=== PATIENT | female | born 1985 | race Two or more races ===

== ENCOUNTER 2017-11-03 16:37 | Emergency (ER) | payer SELFPAY ==
--- NOTE | 2017-11-03 17:44 | ER Document Report ---
HPI - HPI Pain Level: 2 Context: Patient is a 32-year-old female presents emergency department with a complaint of leg pain. Patient states that she was at home 9 days ago and tripped over a baby gate and she admits to pain on her right pena as well as her left knee. She states she has been able to ambulate without any difficulty. Intermittently she will have some burning discomfort behind her right pena where she still has a bruise and hematoma. She states that she has not been taking any Tylenol or Motrin. Otherwise healthy female. Last menstrual period was 2 weeks ago. - REPRODUCTIVE Reproductive: DENIES: : Past Medical History - Social History Smoking Status: Never Smoker Family History: Reviewed & Not Pertinent Past Surgical History: Reports: Hx Orthopedic Surgery - L knee - Immunizations Hx Diphtheria, Pertussis, Tetanus Vaccination: Yes Vertical Provider Document - CONSTITUTIONAL Agree With Documented VS: Yes Notes: PHYSICAL EXAM GENERAL: Alert, interacts well. EXTREMITIES: Moves all 4 extremities spontaneously. Full range of motion nontender. No palpable deformities, evidence of edema, radial and dorsalis pedis pulses 2/4 bilaterally. No cyanosis. NEUROLOGICAL: Alert and oriented x4. Normal speech. PSYCH: Normal affect, normal mood. SKIN: Warm, dry, normal turgor. No rashes or lesions noted. 2 abrasions noted on the right pena with mild ecchymosis as well as the left knee. - INFECTION CONTROL TRAVEL OUTSIDE OF THE [place] IN LAST 30 DAYS: No - RESPIRATORY O2 Sat by Pulse Oximetry: 99 Course - Re-evaluation Re-evalutation: 11/03/17 18:20 Patient is a 32-year-old female is hemodynamically stable, no acute distress. No evidence of a septic joint, gout flare, dislocation, or fracture on exam and imaging. Vitals wnl. At this time, I do not see an indication for labs or further imaging. Will discharge with conservative measures, return precautions, and follow-up recommendations. - Vital Signs Vital signs: Temp Pulse Resp BP Pulse Ox 98.8 F 87 16 134/72 H 99 11/03/17 16:56 11/03/17 16:56 11/03/17 16:56 11/03/17 16:56 11/03/17 16:56 - Diagnostic Test Radiology reviewed: Image reviewed, Reports reviewed Discharge - Discharge Clinical Impression: Fall Qualifiers: Encounter type: initial encounter Qualified Code(s): W19.XXXA - Unspecified fall, initial encounter Condition: Good Disposition: HOME, SELF-CARE Instructions: Contusion ([facility]), Ice & Elevation ([facility]) Referrals: JUSTINA ROSEN MD [ACTIVE STAFF] - Follow up as needed
--- NOTE | 2017-11-03 18:13 | RADIOLOGY REPORT (SQ) ---
EXAM DESCRIPTION: KNEE LEFT 4 VIEW COMPLETED DATE/TIME: 11/03/2017 6:05 pm REASON FOR STUDY: fall, bruising COMPARISON: None. NUMBER OF VIEWS: Four views. TECHNIQUE: AP, lateral, and both oblique radiographic images acquired of the left knee. LIMITATIONS: None. FINDINGS: MINERALIZATION: Normal. BONES: No acute fracture or dislocation. No worrisome bone lesions. JOINT: No effusion. SOFT TISSUES: No soft tissue swelling. No radio-opaque foreign body. OTHER: No other significant finding. IMPRESSION: NEGATIVE STUDY OF THE LEFT KNEE. NO RADIOGRAPHIC EVIDENCE OF ACUTE INJURY. TECHNICAL DOCUMENTATION: JOB ID: [id number] [email or web address]- All Rights Reserved
--- NOTE | 2017-11-03 18:13 | RADIOLOGY REPORT (SQ) ---
EXAM DESCRIPTION: TIBIA FIBULA RIGHT COMPLETED DATE/TIME: 11/03/2017 6:06 pm REASON FOR STUDY: fall, bruising COMPARISON: None. NUMBER OF VIEWS: Two views. TECHNIQUE: Two radiographic images acquired of the right tibia and fibula to include the knee and an kle in at least one projection. LIMITATIONS: None. FINDINGS: MINERALIZATION: Normal. BONES: No acute fracture or dislocation. No worrisome bone lesions. SOFT TISSUES: No obvious swelling or foreign body. OTHER: No other significant finding. IMPRESSION: NEGATIVE STUDY OF THE RIGHT TIBIA AND FIBULA. NO RADIOGRAPHIC EVIDENCE OF ACUTE INJURY. TECHNICAL DOCUMENTATION: JOB ID: [id number] [employer] All Rights Reserved
[2017-11-03 18:40] VITALS: BP 127/73
== END 2017-11-03 18:30 | disposition home or self-care (01) ==
LOC: ER 16:37
DX: S80.11XA Contusion of right lower leg, initial encounter (principal); S80.02XA Contusion of left knee, initial encounter; W01.0XXA Fall on same level from slipping, tripping and stumbling without subsequent striking against object, initial encounter; Y92.009 Unspecified place in unspecified non-institutional (private) residence as the place of occurrence of the external cause
CPT/HCPCS: 99283

== ENCOUNTER 2018-10-30 20:51 | Emergency (ER) | payer MEDICAID, OTHER ==
--- NOTE | 2018-10-30 22:31 | RADIOLOGY REPORT (SQ) ---
EXAM DESCRIPTION: XR ANKLE 3 OR MORE VIEWS COMPLETED DATE/TME: 10/30/2018 00:00 CLINICAL HISTORY: 33 years, Female, twisted ankle COMPARISON: None. NUMBER OF VIEWS: 3 TECHNIQUE: 3 view left ankle LIMITATIONS: None. FINDINGS: Osteopenia with mild soft tissue swelling. Negative for acute fracture or dislocation. Posterior calcaneal spur. Talar beaking is noted on the lateral view. This can be seen in cases of tarsal coalition, and there is suggestion of talocalcaneal coalition. IMPRESSION: No acute osseous abnormality. 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 Calcaneal spur. Mild soft tissue swelling. copyright 2010 [facility]- All Rights Reserved
--- NOTE | 2018-10-30 22:51 | ER Document Report ---
ED General - General Chief Complaint: Ankle Injury Stated Complaint: LEFT ANKLE PAIN Time Seen by Provider: 10/30/18 22:08 Primary Care Provider: JUAN F PALMER DO [ACTIVE STAFF] - Follow up in 1 week Notes: Patient is a pleasant 33-year-old female presents with complaint of left ankle sprain. Patient says that she missed a step and rolled her left ankle. She notes pain on the anterolateral aspect of the ankle. No other injuries. No pain into the distal foot. No pain into the knee. TRAVEL OUTSIDE OF THE [place] IN LAST 30 DAYS: No - Related Data Allergies/Adverse Reactions: No Known Allergies Allergy (Verified 11/03/17 17:42) Past Medical History - Social History Smoking Status: Never Smoker Frequency of alcohol use: None Drug Abuse: None Family History: Reviewed & Not Pertinent Renal/ Medical History: Denies: Hx Peritoneal Dialysis Past Surgical History: Reports: Hx Orthopedic Surgery - L knee - Immunizations Hx Diphtheria, Pertussis, Tetanus Vaccination: Yes Review of Systems - Review of Systems Notes: My Normal Review Basic REVIEW OF SYSTEMS: CONSTITUTIONAL : Denies fever, chills, or sweats. Denies recent illness. MUSCULOSKELETAL: Left ankle pain SKIN: Denies rash or skin lesions. NEUROLOGICAL: Denies sensory or motor loss. ALL OTHER SYSTEMS REVIEWED AND NEGATIVE. Physical Exam - Vital signs Vitals: Temp Pulse Resp BP Pulse Ox 98.3 F 96 16 147/71 H 100 10/30/18 21:09 10/30/18 21:09 10/30/18 21:09 10/30/18 21:09 10/30/18 21:09 - Notes Notes: General Appearance: Well nourished, alert, cooperative, no acute distress, no obvious discomfort. Vitals: reviewed, See vital signs table. Extremities: Pain in left ankle. Pain is focal over the anterior talofibular ligament. Remainder of ankle is nontender. No pain over the Achilles. No pain over the knee. No pain is a distal foot. Skin: warm, dry, appropriate color, no rash Neuro: speech clear, oriented x 3, normal affect, responds appropriately to questions. Course - Re-evaluation Re-evalutation: 10/31/18 06:36 X-ray is negative. Patient has exam findings consistent with ankle sprain. Patient given crutches and an ankle splint. Patient will be discharged home with instructions to use crutches for the next 2 days. If she continues to have pain after 2 days and to continue be nonweightbearing and follow-up with orthopedics. Patient agrees with plan and will be discharged home. Dictation of this chart was performed using voice recognition software; therefore, there may be some unintended grammatical errors. - Vital Signs Vital signs: Temp Pulse Resp BP Pulse Ox 97.7 F 98 16 135/88 H 97 10/30/18 23:18 10/30/18 23:18 10/30/18 23:18 10/30/18 23:18 10/30/18 23:18 Discharge - Discharge Clinical Impression: Ankle sprain Qualifiers: Encounter type: initial encounter Involved ligament of ankle: unspecified ligament Laterality: left Qualified Code(s): S93.402A - Sprain of unspecified ligament of left ankle, initial encounter Condition: Good Disposition: HOME, SELF-CARE Additional Instructions: Ankle Stirrup Splint You are to use an ankle brace called a stirrup splint. This type of brace allows you to place greater stresses on the ankle without risk of re-injury, and is often used for more severe ankle injuries such as avulsion fractures and ligament ruptures. The splint can be worn over a sock or tape. For proper support, wear the splint with a shoe over it. It's important that the splint fit properly. Adjust the heel tension, if needed. If your splint has air bladders, peel back the bottom of each air bladder, then move the Velcro attachment of the heel strap up or down. Air bladder pressure can be adjusted by pulling up the valve at the top, threading the air tube down into the main bladder, then blowing air into the bladder or squeezing it out. The two sides of the stirrup can be moved forward or back on your ankle by changing the attachment of the main straps. If you are unable to use the ankle comfortably in the splint, return for re-evaluation. Please do not bear weight on your ankle for the next 2 days. After 2 days you can gently bear weight on your ankle. If it is still painful to bear weight after two days stopping weight and continue to use crutches. If you continue to have pain with bearing weight on your ankle after 1 week then please follow-up with orthopedist, Dr. Palmer. Please return to ER if you have any further concerns. Forms: Return to Work Referrals: JUAN F PALMER DO [ACTIVE STAFF] - Follow up in 1 week
[2018-10-30 23:19] VITALS: BP 135/88
== END 2018-10-30 23:19 | disposition home or self-care (01) ==
LOC: ER 20:51
DX: S93.402A Sprain of unspecified ligament of left ankle, initial encounter (principal); M25.572 Pain in left ankle and joints of left foot; X50.1XXA Overexertion from prolonged static or awkward postures, initial encounter
CPT/HCPCS: 99283; 73610; L1902

== ENCOUNTER 2019-05-21 18:30 | Emergency (ER) | payer OTHER ==
[2019-05-21 18:37] VITALS: BP 143/86
[2019-05-21] MEDS ORDERED: DIPH/PERTUSS(ACELL)/TETANUS VAC/PF 0.5 ML SYR (>=10YO) IM ONE (19:20)
[2019-05-21] MEDS ORDERED: CEPHALEXIN 500 MG CAPSULE PO ONE (19:20)
--- NOTE | 2019-05-21 19:21 | ER Document Report ---
ED Wound - General Chief Complaint: Laceration Stated Complaint: LEG LACERATION Time Seen by Provider: 05/21/19 19:13 Mode of Arrival: Ambulatory Information source: Patient Notes: Patient is a 33-year-old female presenting to the emergency department chief complaint of injury to her bilateral legs from a dog leash. Patient reports that she was at work when a person had a dog on a retractable leash and the dog took off running and the leash cut to the back of her legs. She states she cleaned the area immediately and has been applying triple antibiotic ointment to the area twice daily. She denies any other symptoms today. TRAVEL OUTSIDE OF THE [place] IN LAST 30 DAYS: No - Related Data Allergies/Adverse Reactions: No Known Allergies Allergy (Verified 05/21/19 18:32) Past Medical History - General Information source: Patient - Social History Smoking Status: Never Smoker Frequency of alcohol use: None Drug Abuse: None Family History: Reviewed & Not Pertinent - Medical History Medical History: Negative Renal/ Medical History: Denies: Hx Peritoneal Dialysis Past Surgical History: Reports: Hx Orthopedic Surgery - L knee - Immunizations Hx Diphtheria, Pertussis, Tetanus Vaccination: Yes Review of Systems - Review of Systems Constitutional: No symptoms reported EENT: No symptoms reported Cardiovascular: No symptoms reported Respiratory: No symptoms reported Gastrointestinal: No symptoms reported Genitourinary: No symptoms reported Female Genitourinary: No symptoms reported Musculoskeletal: No symptoms reported Skin: See HPI Hematologic/Lymphatic: No symptoms reported Neurological/Psychological: No symptoms reported Physical Exam - Vital signs Vitals: Temp Pulse Resp BP Pulse Ox 98.9 F 88 16 143/86 H 99 05/21/19 18:36 05/21/19 18:36 05/21/19 18:36 05/21/19 18:36 05/21/19 18:36 - Notes Notes: PHYSICAL EXAMINATION: GENERAL: Well-appearing, well-nourished and in no acute distress. HEAD: Atraumatic, normocephalic. EYES: Pupils equal round extraocular movements intact, conjunctiva are normal. ENT: Nares patent NECK: Normal range of motion LUNGS: No respiratory distress Musculoskeletal: Normal range of motion NEUROLOGICAL: Normal speech, normal gait. PSYCH: Normal mood, normal affect. SKIN: Abrasion noted to posterior left leg behind the knee. Abrasion noted to posterior right leg over the calf. She is no surrounding erythema. Course - Re-evaluation Re-evalutation: The abrasions are superficial and have been present for greater than 48 hours. No indication for suturing at this time. Patient will be started on antibiotics as the leash that she got cut with was dirty. The patient's emergency department workup and current diagnosis were explained to the patient and or family. Follow-up instructions were provided. Medications if prescribed were discussed. Instructions for when to return to the emergency department including specific worrisome symptoms were discussed with the patient and/or family. - Vital Signs Vital signs: Temp Pulse Resp BP Pulse Ox 98.9 F 88 16 143/86 H 99 05/21/19 18:36 05/21/19 18:36 05/21/19 18:36 05/21/19 18:36 05/21/19 18:36 Discharge - Discharge Clinical Impression: Laceration Condition: Stable Disposition: HOME, SELF-CARE Instructions: Antibiotic Ointment Protection ([facility]), Prophylactic Antibiotic ([facility]), Soap Cleansing ([facility]), Tetanus Immunization Given ([facility]) Additional Instructions: Please continue to cleanse the area with mild soap and water twice daily. You may apply a thin layer of bacitracin or triple antibiotic ointment to the area once daily. Take the antibiotics as prescribed, this will hopefully help prevent any infection from starting. Prescriptions: Cephalexin [Cephalexin 500 MG Tablet] 1 tab PO BID #20 tablet
== END 2019-05-21 19:34 | disposition home or self-care (01) ==
LOC: ER 18:30
DX: S81.812A Laceration without foreign body, left lower leg, initial encounter (principal); S81.811A Laceration without foreign body, right lower leg, initial encounter; W45.8XXA Other foreign body or object entering through skin, initial encounter; Y93.K1 Activity, walking an animal
CPT/HCPCS: 90471; 90715; 99282

== ENCOUNTER 2020-08-10 11:04 | Emergency (ER) | payer OTHER ==
[2020-08-10 11:26] VITALS: BP 146/72
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
[2020-08-10 12:10] LABS: ABSOLUTE EOSINOPHILS # (AUTO) 0.1 10^3/uL (0.0-0.6); ABSOLUTE LYMPHOCYTES (AUTO) 1.3 10^3/uL (0.5-4.7); ABSOLUTE MONOCYTES (AUTO) 0.4 10^3/uL (0.1-1.4); ABSOLUTE NEUT (AUTO) 4.6 10^3/uL (1.7-8.2); BASOPHILS % (AUTO) 0.6 % (0-2); EOSINOPHILS % (AUTO) 1.4 % (0-6); HEMATOCRIT 33.9 % (36.0-47.0); HEMOGLOBIN 11.2 g/dL (12.0-15.5); LYMPHOCYTES % (AUTO) 19.9 % (13-45); MEAN CORPUSCULAR HEMOGLOBIN 24.1 pg (27.0-33.4); MEAN CORPUSCULAR HGB CONC 33.1 g/dL (32.0-36.0); MEAN CORPUSCULAR VOLUME 73 fl (80-97); MONOCYTES % (AUTO) 6.5 % (3-13); PLATELET COUNT 310 10^3/uL (150-450); RED BLOOD COUNT 4.65 10^6/uL (3.72-5.28); RED CELL DISTRIBUTION WIDTH 15.1 % (11.5-14.0); SEGMENTED NEUTROPHILS % (AUTO) 71.6 % (42-78); TOTAL CELLS COUNTED % (AUTO) 100 %; WHITE BLOOD COUNT 6.5 10^3/uL (4.0-10.5)
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
== END 2020-08-10 14:05 | disposition home or self-care (01) ==
LOC: ER 11:04
DX: T59.811A Toxic effect of smoke, accidental (unintentional), initial encounter (principal); J70.5 Respiratory conditions due to smoke inhalation; Y92.239 Unspecified place in hospital as the place of occurrence of the external cause; Y99.0 Civilian activity done for income or pay
CPT/HCPCS: 36415; 71045; 82375; 85025; 99283